=== PATIENT | male | born 1995 | race Caucasian/White ===

== ENCOUNTER 2017-11-19 22:17 | Emergency (ER) | payer OTHER ==
[~2017-11-19] VITALS: Ht 175.3 cm; Wt 93.0 kg
--- NOTE | 2017-11-19 22:19 | NUR ---
PT TAKEN TO BED 1
[2017-11-19 22:21] VITALS: BP 153/78
--- NOTE | 2017-11-19 22:22 | NUR ---
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 NOTHING PRECIPITATED THE EVENT. PATIENT HAS NO COMPLAINTS AND IS ALERT AND ORIENTED X 4 ON ARRIVAL. GCS 15, DENIES CP AND SOB. HX: ANXIETY MEDS: NONE
[2017-11-20 00:07] VITALS: BP 130/75
--- NOTE | 2017-11-20 00:07 | NUR ---
Patient discharged with v/s stable. Written and verbal after care instructions given and explained. Patient alert, oriented and verbalized understanding of instructions. Ambulatory with steady gait. All questions addressed prior to discharge. ID band removed. Patient advised to follow up with Opportunity to ask questions provided and answered.
== END 2017-11-20 00:07 | disposition home or self-care (01) ==
LOC: MED 22:17
DX: F41.9 Anxiety disorder, unspecified (principal); K21.9 Gastro-esophageal reflux disease without esophagitis
CPT/HCPCS: 99284

== ENCOUNTER 2017-12-25 16:58 | Emergency (ER) | payer OTHER ==
[~2017-12-25] VITALS: Ht 175.3 cm; Wt 92.2 kg
[2017-12-25 17:09] VITALS: BP 128/70
--- NOTE | 2017-12-25 17:15 | NUR ---
C/O DIARRHEA X 4 DAYS, VOMITING TODAY, ABDOMINAL PAIN 8/10; DENIES DIZZINESSSKIN IS PINK/WARM/DRY; AAOX4 WITH EVEN AND STEADY GAIT; LUNGS CLEAR BL; HR EVEN AND REGULAR; PT DENIES ANY FEVER, CP, SOB, OR COUGH AT THIS TIME; PATIENT STATES PAIN OF 8/10 AT THIS TIME; VSS; PATIENT POSITIONED FOR COMFORT; HOB ELEVATED; BEDRAILS UP X2; BED DOWN. ER MD MADE AWARE OF PT STATUS.
--- NOTE | 2017-12-25 17:30 | NUR ---
DR PERKINS AT BEDSIDE.
--- NOTE | 2017-12-25 18:00 | NUR ---
Patient discharged with v/s stable. Written and verbal after care instructions given and explained. Patient alert, oriented and verbalized understanding of instructions. Ambulatory with steady gait. All questions addressed prior to discharge. ID band removed. Patient advised to follow up with PMD. Rx of LOMOTIL, SYNALAR, ZOFRAN given. Patient educated on indication of medication including possible reaction and side effects. Opportunity to ask questions provided and answered.
[2017-12-25 18:03] VITALS: BP 128/70
== END 2017-12-25 18:00 | disposition home or self-care (01) ==
LOC: MED 16:58
DX: R11.10 Vomiting, unspecified (principal); R19.7 Diarrhea, unspecified; L30.9 Dermatitis, unspecified; K21.9 Gastro-esophageal reflux disease without esophagitis
CPT/HCPCS: 99283

== ENCOUNTER 2018-06-25 18:26 | Emergency (ER) | payer SELFPAY ==
[~2018-06-25] VITALS: Ht 175.3 cm; Wt 84.8 kg
[2018-06-25 18:30] VITALS: BP 126/71
--- NOTE | 2018-06-25 18:40 | NUR ---
22 Y MALE BIB SELF C/O RT ANKLE PAIN X2 HOURS. PT REPORTS ROLLING ANKLE AND HEARING 3 POPS WHILE AT WORK. CANNOT PUT ANY PRESSURE ON RT FOOT, +ROM WITH PAIN. PRESSURE PAIN AT 8/10 THAT RADIATES UP TO RT KNEE, AND TINGLING AROUND FOOT. NO SWELLING, NO DEFORMITY, COLOR NORMAL, DELAYED CAP REFILL, PALPABLE PEDAL PULSE. VSS AT THIS TIME, AA0X4. BED IS DOWN, LOCKED, BED RAIL X 1, ERMD NOTIFIED. MEDHX:DENIES RX:DENIES
[2018-06-25] MEDS ORDERED: IBUPROFEN 600 MG TAB PO ONE (19:05)
--- NOTE | 2018-06-25 19:05 | NUR ---
DR BENAVIDEZ AT BEDSIDE
--- NOTE | 2018-06-25 19:07 | NUR ---
REPORT GIVEN TO AKBAR CLARK
--- NOTE | 2018-06-25 19:41 | NUR ---
PT STATES 7/10 PAIN AT THIS TIME, STATES PAIN HAS DECREASED AND COPING W/ PAIN. SAFETY PRECAUTIONS IN PLACE. WILL CONTINUE TO MONITOR.
--- NOTE | 2018-06-25 20:36 | NUR ---
Air cast applied, radial pulses wnl bl. Patient ambulates w/ steady gate using crutches, pt was able to demonstrate back proper ambulation w/ crutches. Patient states pain has decreased to 3/10, states coping at this time. Patient discharged with v/s stable. Written and verbal after care instructions given and explained. Patient alert, oriented and verbalized understanding of instructions. Ambulatory with steady gait. All questions addressed prior to discharge. ID band removed. Patient advised to follow up with PMD. Rx of Ibuprofen given. Patient educated on indication of medication including possible reaction and side effects. Opportunity to ask questions provided and answered.
[2018-06-25 20:59] VITALS: BP 124/71
== END 2018-06-25 20:36 | disposition home or self-care (01) ==
LOC: MED 18:26
DX: M25.571 Pain in right ankle and joints of right foot (principal); X50.1XXA Overexertion from prolonged static or awkward postures, initial encounter; Y93.89 Activity, other specified; Y92.69 Other specified industrial and construction area as the place of occurrence of the external cause; Y99.0 Civilian activity done for income or pay
CPT/HCPCS: 73610; 99283; Q0092; 29515

== ENCOUNTER 2018-10-15 08:31 | Emergency (ER) | payer MEDICAID ==
[~2018-10-15] VITALS: Ht 170.2 cm; Wt 88.5 kg
[2018-10-15 08:41] VITALS: BP 129/73
--- NOTE | 2018-10-15 08:45 | NUR ---
PT AMB TO BED 12 WITH STEADY GAIT
--- NOTE | 2018-10-15 08:49 | NUR ---
C/O DYSURIA X 2 DAYS. PAIN 6/10 WITH URINATION. DENIES LOWER BACK PAIN. DENIES FEVER, CHILLS, OR N/V/D. AA0X4. PT TACHY AT 107. BED IS DOWN, LOCKED, BED RAIL X 1, ERMD TO SEE PT. PT AMB TO RESTROOM WITH STEADY GAIT PMH- DENIES
--- NOTE | 2018-10-15 10:27 | NUR ---
ER AT BEDSIDE
[2018-10-15 10:51] VITALS: BP 147/72
--- NOTE | 2018-10-15 10:52 | NUR ---
Patient discharged with v/s stable. Written and verbal after care instructions given and explained. Patient alert, oriented and verbalized understanding of instructions. Ambulatory with steady gait. All questions addressed prior to discharge. ID band removed. Patient advised to follow up with PMD. Rx of PYRIDIUM, KEFLEX given. Patient educated on indication of medication including possible reaction and side effects. Opportunity to ask questions provided and answered.
== END 2018-10-15 10:52 | disposition home or self-care (01) ==
LOC: MED 08:31
DX: N39.0 Urinary tract infection, site not specified (principal)
CPT/HCPCS: 81002; 87086; 99283

== ENCOUNTER 2020-04-16 10:10 | Emergency (ER) | payer SELFPAY ==
[~2020-04-16] VITALS: Ht 172.7 cm; Wt 93.0 kg
[2020-04-16 10:14] VITALS: BP 133/74
--- NOTE | 2020-04-16 10:25 | NUR ---
24 YEAR OLD MALE COMPLAINS OF LEFT KNEE PAIN X 1 DAY. PAIN 6/10, LOCAL, SHARP, INTERMITTENT. PATIENT STATED ONSET OF PAIN BEGAN WHEN GOING FROM QUATTING TO STANDING POSITION QUICKLY AND FELT SHARP PAIN AFTER TAKING ONE STEP FORWARD. LIMITED ROM NOTED. SKIN INTACT, PATELLA APPEARS SOMEWHAT SWOLLEN. PEDAL PULSES PRESENT, SENSATION INTACT, NORMAL SKIN COLOR, NORMAL TEMPERATURE. NO OPEN WOUNDS NOTED. A04, BREATHING EVEN AND UNLABORED, SKIN WARM AND DRY. BED IN LOWEST POSITION, LOCKED, X 1 SIDERAIL UP. PMH - DENIED NKA
[2020-04-16 12:00] VITALS: BP 133/74
--- NOTE | 2020-04-16 12:00 | NUR ---
Patient discharged with v/s stable. Written and verbal after care instructions given and explained. Patient alert, oriented and verbalized understanding of instructions. Ambulatory with steady gait. All questions addressed prior to discharge. ID band removed. Patient advised to follow up with PMD. Rx of naprosyn 500mg BID po prn pain given. Patient educated on indication of medication including possible reaction and side effects. Opportunity to ask questions provided and answered.
== END 2020-04-16 12:00 | disposition home or self-care (01) ==
LOC: MED 10:10
DX: S89.82XA Other specified injuries of left lower leg, initial encounter (principal); X58.XXXA Exposure to other specified factors, initial encounter; Y93.89 Activity, other specified; Y92.89 Other specified places as the place of occurrence of the external cause; Y99.8 Other external cause status
CPT/HCPCS: 29505; 73562; 99283

== ENCOUNTER 2020-09-04 07:50 | Emergency (ER) | payer SELFPAY ==
[~2020-09-04] VITALS: Ht 175.3 cm; Wt 90.7 kg
[2020-09-04 07:59] VITALS: BP 132/77
--- NOTE | 2020-09-04 08:06 | NUR ---
PT AMBULATED TO BED 12. HANDED ON URIN CUP.
--- NOTE | 2020-09-04 08:13 | NUR ---
Dr. Chao is evaluating patient at bedside.
--- NOTE | 2020-09-04 08:13 | NUR ---
25 y/o M BIB self from home with c/c epigastric pain. Patient A&Ox4, ambulatory, reports recently seen at [facility] for chest/epigastric pain. Patient states "pink drink to numb throat" given at [facility], pt discharged home without medication; reports acid reflux and sore throat. Reports 09/01, sharp/burning/intermittent, non-radiating pain. Patient denies spicy/greasy/acidic foods but states frequent coffee drinker. Denies medications prior to arrival; denies N/V/D, fever/chills, SOB. Bowel sounds normoactive x 4 quadrants; VSS; respirations even/unlabored. Bed locked in lowest position, side rails x 1, call light in reach. PMH/Sx/Meds: Denies LISAA
[2020-09-04] MEDS ORDERED: DICYCLOMINE HCL LIQUID 20 MG, ALUMINUM HYD/MAG/SIMETHICONE 30 ML, LIDOCAINE VISCOUS 2% ... PO ONE ×3 (08:15)
--- NOTE | 2020-09-04 08:18 | NUR ---
RECEIVED AWAKE AND ALERT, SITTING ON THE SIDE OF HIS BED C/O BURNING EPIGASTRIC PAIN ONSET THIS MORNING, ENDORSES DRINKING ALCOHOL AND COFFEE OVER THE WEEKEND. HX OF SAME 1.5 WEEKS AGO, WAS SEEN AT [facility], TREATED WITH GI COCKTAIL AND PRESCRIBED PEPCID, PATIENT STATES HE HAS BEEN UNABLE TO OBTAIN PEPCID. PAIN RETURNED EARLY THIS MORNING, DIFFICULTY SLEEPING. DENIES NAUSEA VOMITING OR DIARRHEA. NO MEDICAL HISTORY AND NO KNOWN ALLERGIES. BED IN LOW AND LOCKED POSITION.
[2020-09-04] MEDS ORDERED: ALUMINUM HYD/MAG/SIMETHICONE 30 ML UDC ONE (08:21)
[2020-09-04] MEDS ORDERED: DICYCLOMINE HCL LIQUID 10 MG/5 ML UDC ONE (08:21)
[2020-09-04] MEDS ORDERED: OMEP20EC11 PO (08:35)
[2020-09-04 08:53] VITALS: BP 132/77
--- NOTE | 2020-09-04 08:53 | NUR ---
Patient discharged with v/s stable. Written and verbal after care instructions given and explained. Patient alert, oriented and verbalized understanding of instructions. Ambulatory with steady gait. All questions addressed prior to discharge. ID band removed. Patient advised to follow up with PMD. Rx of Prilosec given. Patient educated on indication of medication including possible reaction and side effects. Opportunity to ask questions provided and answered.
== END 2020-09-04 08:53 | disposition home or self-care (01) ==
LOC: MED 07:50
DX: K21.9 Gastro-esophageal reflux disease without esophagitis (principal)
CPT/HCPCS: 99283